=== PATIENT | male | born 1995 | race Caucasian/White ===

== ENCOUNTER 2017-07-02 16:56 | Emergency (ER) | payer BC ==
[~2017-07-02] VITALS: Ht 190.5 cm; Wt 95.5 kg
[2017-07-02 17:07] VITALS: BP 134/70; TEMP 97.4
[2017-07-02 18:21] VITALS: PULSE 70
== END 2017-07-02 18:22 | disposition home or self-care (01) ==
LOC: COL.ER 16:56
DX: S09.90XA Unspecified injury of head, initial encounter (principal); S00.81XA Abrasion of other part of head, initial encounter; V00.131A Fall from skateboard, initial encounter; Y93.51 Activity, roller skating (inline) and skateboarding